=== PATIENT | male | born 1960 | race African-American/Black ===

== ENCOUNTER 2022-06-28 19:59 | Emergency (ER) | payer OTHER ==
[~2022-06-28] VITALS: Ht 165.1 cm; Wt 64.0 kg
[2022-06-28] MEDS ORDERED: ASPIRIN 81MG TABLET PO ONE (23:00)
[2022-06-28] MEDS ORDERED: NITROGLYCERIN 0.4MG TABLET SL SL PRN (23:00)
[2022-06-28 23:24] LABS: BASOPHILS % 0.2 % (0.0-2.0); EOSINOPHILS % 1.3 % (0.0-5.0); HEMATOCRIT. 39.4 % (42.0-52.0); HEMOGLOBIN. 13.4 g/dL (14.0-18.0); LYMPHOCYTES % 43.3 % (20.0-50.0); MEAN CORPUSCULAR VOLUME 90.9 fL (80.0-94.0); MEAN PLATELET VOLUME 8.3 fl (7.4-10.4); MONOCYTES % 11.8 % (2.0-8.0); NEUTROPHILS % 43.4 % (40.0-76.0); PLATELET 248 x1000/uL (130-400); RED BLOOD CELL COUNT 4.33 mill/uL (4.7-6.1); RED CELL DISTRIBUTION WIDTH 13.3 % (11.6-14.6)
[2022-06-28 23:28] LABS: CHLORIDE 107 mEq/L (98-107)
[2022-06-28 23:40] LABS: ETHANOL BLOOD < 10 mg/dL
[2022-06-29 03:00] VITALS: BP 128/66
== END 2022-06-29 03:10 ==
LOC: ER 19:59
DX: R07.89 Other chest pain (principal); I10 Essential (primary) hypertension; R94.31 Abnormal electrocardiogram [ECG] [EKG]; Z95.1 Presence of aortocoronary bypass graft; Z86.73 Personal history of transient ischemic attack (TIA), and cerebral infarction without residual deficits; Z65.3 Problems related to other legal circumstances
CPT/HCPCS: 36415; 71045; 80053; 80320; 83880; 84484; 85025; 93005; 99285; Z7610; G0480

== ENCOUNTER 2022-09-06 02:13 | Emergency (ER) | payer MEDICAID, OTHER ==
[~2022-09-06] VITALS: Ht 175.3 cm; Wt 80.0 kg
[2022-09-06 03:27] LABS: HEMATOCRIT. 49.2 % (42.0-52.0); MEAN CORPUSCULAR HEMOGLOBIN 31.2 pg (28.0-32.0); MEAN CORPUSCULAR VOLUME 90.4 fL (80.0-94.0); RED BLOOD CELL COUNT 5.44 mill/uL (4.7-6.1); RED CELL DISTRIBUTION WIDTH 13.7 % (11.6-14.6)
[2022-09-06 03:35] LABS: CHLORIDE 106 mEq/L (98-107)
[2022-09-06 03:45] LABS: ETHANOL BLOOD < 10 mg/dL
[2022-09-06] MEDS ORDERED: SODIUM CHLORIDE 0.9% 1,000 ML IV NR (03:45)
[2022-09-06] MEDS ORDERED: ONDANSETRON HCL 4MG/2ML INJ IV ONE (03:45)
[2022-09-06] MEDS ORDERED: MORPHINE SULFATE 2 MG/ML CPJ (NOT FOR IM USE) IV ONE (04:00)
[2022-09-06] MEDS ORDERED: ONDANSETRON HCL 4MG/2ML INJ IV NR (04:15)
[2022-09-06] MEDS ORDERED: MAGNESIUM/ALUMINUM HYDROXIDE/SIMETHICONE 30ML UDC PO NR (04:15)
[2022-09-06] MEDS: PANTOPRAZOLE SODIUM 40 MG/VIAL IV NR ×3 (04:15→06:28)
[2022-09-06] MEDS ORDERED: IOHEXOL-350 100 ML BOTTLE ONE (06:20)
[2022-09-06 07:44] VITALS: BP 117/60
[2022-09-06] MEDS ORDERED: ONDANSETRON HCL 4MG/2ML INJ IV PRN (09:30)
[2022-09-06] MEDS ORDERED: ACETAMINOPHEN 325MG TABLET PO PRN (09:30)
== END 2022-09-06 10:25 | disposition left against medical advice (07) ==
LOC: ER 02:30 → EDBEDREQSVC 05:55 → EDBEDREQ 05:55 → EDBEDREQTM 05:55 → ER 10:25 → CANBEDREQ 11:20
DX: R55 Syncope and collapse (principal); R07.89 Other chest pain; I50.9 Heart failure, unspecified; R11.2 Nausea with vomiting, unspecified; R00.1 Bradycardia, unspecified; I11.0 Hypertensive heart disease with heart failure; I25.10 Atherosclerotic heart disease of native coronary artery without angina pectoris; Z86.73 Personal history of transient ischemic attack (TIA), and cerebral infarction without residual deficits; Z20.822 Contact with and (suspected) exposure to COVID-19
CPT/HCPCS: 36415; 70450; 71045; 71275; 72125; 74174; 80053; 80320; 83605; 83690; 83880; 84484; 85025; 87426; 93005; 96374; 96375; 99285; C9113; C9803; J2270; J2405; Q9967; G0480

== ENCOUNTER 2025-03-13 18:20 | Inpatient (IN) | payer MEDICARE, MEDICAID ==
[~2025-03-13] VITALS: Ht 167.6 cm; Wt 62.2 kg
[~2025-03-13 18:20] MED LIST: ASPI-1497 MT; ATOR40TA70 MT; CHOL-36 PO; FOLI-43 MT; LEVE1000 MT; OMEP20CA14 MT; THIA100T72 MT
[2025-03-13 18:40] VITALS: O2SAT 100
[2025-03-13 19:34] LABS: BASOPHILS % 1.8 % (0.0-2.0); EOSINOPHILS % 1.0 % (0.0-5.0); HEMATOCRIT. 36.0 % (42.0-52.0); HEMOGLOBIN. 12.2 g/dL (14.0-18.0); LYMPHOCYTES % 42.3 % (20.0-50.0); MEAN PLATELET VOLUME 9.3 fl (7.4-10.4); MONOCYTES % 8.4 % (2.0-8.0); NEUTROPHILS % 46.5 % (40.0-76.0); PLATELET 170 x1000/uL (130-400); RED BLOOD CELL COUNT 4.00 mill/uL (4.7-6.1); RED CELL DISTRIBUTION WIDTH 13.1 % (11.6-14.6)
[2025-03-13 19:45] LABS: CREATININE 1.1 mg/dL (0.6-1.3); TROPONIN I HIGH SENSITIVITY 16 ng/L (3.0-53); UREA NITROGEN BLOOD 11 mg/dL (9-23)
[2025-03-13 19:46] LABS: ETHANOL BLOOD < 10 mg/dL (<10)
[2025-03-13] MEDS: SODIUM CHLORIDE 0.9% 1,000 ML IV ONE (21:13)
[2025-03-13] MEDS: LEVETIRACETAM 500MG PREMIX 100 ML IV ONE (21:14)
[2025-03-13] MEDS: LORAZEPAM 2MG/ML UD SYRINGE IV SCH (21:17)
[2025-03-14] MEDS ORDERED: ACETAMINOPHEN 325MG TABLET PO PRN ×2 (00:15)
[2025-03-14] MEDS ORDERED: GUAIFENESIN 200MG/10ML SUGAR FREE UDC PO PRN (00:15)
[2025-03-14] MEDS ORDERED: CLONIDINE 0.1MG TABLET PO PRN (00:15)
[2025-03-14] MEDS ORDERED: DOCUSATE SODIUM 100MG CAPSULE PO PRN (00:15)
[2025-03-14] MEDS ORDERED: ONDANSETRON HCL 4MG/2ML INJ IV PRN (00:15)
[2025-03-14] MEDS ORDERED: IPRATROPIUM/ALBUTEROL 0.5-3(2.5)MG/3ML NEB HHN PRN (00:15)
[2025-03-14 01:00] VITALS: BP 150/68; PULSE 51; RESP 18; TEMP 36.0844; TEMP 36.1; O2SAT 98
[2025-03-14] MEDS: DEXT 5%/0.9% NACL 1,000 ML IV SCH (01:52)
[2025-03-14 04:00] VITALS: BP 146/64; PULSE 69; RESP 16; TEMP 36.1; O2SAT 100
[2025-03-14] MEDS: PANTOPRAZOLE 40MG DR TABLET PO SCH (06:44)
[2025-03-14 08:00] VITALS: BP 145/67; PULSE 49; RESP 15; TEMP 36.7; O2SAT 18; O2SAT 95
[2025-03-14] MEDS: LEVETIRACETAM 1000MG PREMIX 100 ML IV SCH (08:30)
[2025-03-14] MEDS: ENOXAPARIN 40MG/0.4ML SYR SUBCUT SCH (09:00)
[2025-03-14] MEDS: ASPIRIN 81MG EC TABLET PO SCH (10:20)
[2025-03-14] MEDS: LEVETIRACETAM 500MG TABLET PO SCH (10:20)
[2025-03-14] MEDS: FOLIC ACID 1MG TABLET PO SCH (10:20)
[2025-03-14] MEDS: ATORVASTATIN CALCIUM 40MG TABLET PO SCH (10:21)
[2025-03-14] MEDS: THIAMINE HCL 100MG TABLET PO SCH (10:21)
[2025-03-14] MEDS: CHOLECALCIFEROL (D3) 1000 UNIT TABLET PO SCH (10:21)
[2025-03-14 12:00] VITALS: BP 131/64; PULSE 53; RESP 18; TEMP 36.7; O2SAT 93
[2025-03-14 16:00] VITALS: BP 124/63; PULSE 42; RESP 18; TEMP 36.3; O2SAT 100
[2025-03-14 20:00] VITALS: BP 131/62; PULSE 44; RESP 17; TEMP 36.7; O2SAT 100
[2025-03-14] MEDS ORDERED: LEVETIRACETAM 500MG/5ML CUP PO ONE (21:00)
[2025-03-14] MEDS: LEVETIRACETAM 500MG/5ML CUP PO SCH (21:45)
[2025-03-14 21:49] LABS: BASOPHILS % 0.2 % (0.0-2.0); EOSINOPHILS % 2.0 % (0.0-5.0); HEMATOCRIT. 34.4 % (42.0-52.0); HEMOGLOBIN. 11.5 g/dL (14.0-18.0); LYMPHOCYTES % 56.6 % (20.0-50.0); MEAN PLATELET VOLUME 9.3 fl (7.4-10.4); MONOCYTES % 9.8 % (2.0-8.0); NEUTROPHILS % 31.4 % (40.0-76.0); PLATELET 161 x1000/uL (130-400); RED BLOOD CELL COUNT 3.82 mill/uL (4.7-6.1); RED CELL DISTRIBUTION WIDTH 13.0 % (11.6-14.6)
[2025-03-15] VITALS: BP 123/54; PULSE 53; RESP 17; TEMP 36.9; O2SAT 99
[2025-03-15 04:00] VITALS: BP 112/53; PULSE 45; RESP 17; TEMP 36.9; O2SAT 97
[2025-03-15 07:26] LABS: CREATININE 0.9 mg/dL (0.6-1.3); UREA NITROGEN BLOOD 16 mg/dL (9-23)
[2025-03-15] MEDS ORDERED: OMEP20CA14 MT (07:42)
[2025-03-15] MEDS ORDERED: LEVE1000 MT (07:42)
[2025-03-15] MEDS ORDERED: ASPI-1497 MT (07:42)
[2025-03-15] MEDS ORDERED: ATOR40TA70 MT (07:42)
[2025-03-15] MEDS ORDERED: THIA100T72 MT (07:42)
[2025-03-15] MEDS ORDERED: CLOP-31 PO (07:42)
[2025-03-15] MEDS ORDERED: FOLI-43 MT (07:42)
[2025-03-15 08:00] VITALS: BP 114/53; PULSE 60; RESP 18; TEMP 36.6; O2SAT 100
[2025-03-15] MEDS: CLOPIDOGREL 75MG TABLET PO SCH (09:18)
== END 2025-03-15 11:50 | disposition left against medical advice (07) | DRG 101 ==
LOC: ER 18:20 → 5WST 23:50 → EDBEDREQDT 03-14 00:06 → EDBEDREQTM 03-14 00:06 → EDBEDREQ 03-14 00:06 → ENRESERV 03-14 00:10
PROVIDERS: ADMIT Hospitalist; ATTEND Hospitalist
PROC: 4A00X4Z Measurement of Central Nervous Electrical Activity, External Approach (ICD-10-PCS; principal; 2025-03-15)
DX: G40.909 Epilepsy, unspecified, not intractable, without status epilepticus (principal); I50.22 Chronic systolic (congestive) heart failure; I69.351 Hemiplegia and hemiparesis following cerebral infarction affecting right dominant side; Z59.00 Homelessness unspecified; I11.0 Hypertensive heart disease with heart failure; Z53.29 Procedure and treatment not carried out because of patient's decision for other reasons; D64.9 Anemia, unspecified; E78.00 Pure hypercholesterolemia, unspecified; I25.10 Atherosclerotic heart disease of native coronary artery without angina pectoris; N40.0 Benign prostatic hyperplasia without lower urinary tract symptoms; Z91.148 Patient's other noncompliance with medication regimen for other reason; Z95.1 Presence of aortocoronary bypass graft
CPT/HCPCS: 36415; 80048; 80320; 82550; 82962; 83605; 84484; 85025; 93005; 95816; 97162; 97166; 99285; A4606; J1650; J1953; J2060; J7030; J7042; G0480

== ENCOUNTER 2025-04-17 14:24 | Emergency (ER) | payer MEDICARE, MEDICAID ==
[~2025-04-17] VITALS: Ht 172.7 cm; Wt 64.0 kg
[~2025-04-17 14:24] MED LIST changes: +CLOP-31 PO
[2025-04-17 14:26] VITALS: O2SAT 99
[2025-04-17] MEDS: LEVETIRACETAM 1000MG PREMIX 100 ML IV ONE (14:55)
[2025-04-17 14:56] VITALS: BP 144/71; PULSE 60; RESP 18; TEMP 36.9; O2SAT 97
[2025-04-17 15:02] LABS: BASOPHILS % 2.0 % (0.0-2.0); EOSINOPHILS % 1.1 % (0.0-5.0); HEMATOCRIT. 35.9 % (42.0-52.0); HEMOGLOBIN. 12.3 g/dL (14.0-18.0); LYMPHOCYTES % 36.9 % (20.0-50.0); MEAN PLATELET VOLUME 8.8 fl (7.4-10.4); MONOCYTES % 6.4 % (2.0-8.0); NEUTROPHILS % 53.6 % (40.0-76.0); PLATELET 174 x1000/uL (130-400); RED BLOOD CELL COUNT 4.05 mill/uL (4.7-6.1); RED CELL DISTRIBUTION WIDTH 12.9 % (11.6-14.6)
[2025-04-17 15:13] LABS: CREATININE 1.1 mg/dL (0.6-1.3)
[2025-04-17 15:14] LABS: ETHANOL BLOOD < 10 mg/dL (<10); UREA NITROGEN BLOOD 10 mg/dL (9-23)
[2025-04-17] MEDS ORDERED: MAGNESIUM/ALUMINUM HYDROXIDE/SIMETHICONE 30ML UDC PO PRN (17:30)
[2025-04-17] MEDS ORDERED: DOCUSATE SODIUM 100MG CAPSULE PO PRN (17:30)
[2025-04-17] MEDS ORDERED: GUAIFENESIN 200MG/10ML SUGAR FREE UDC PO PRN (17:30)
[2025-04-17] MEDS ORDERED: CLONIDINE 0.1MG TABLET PO PRN (17:30)
[2025-04-17] MEDS ORDERED: ACETAMINOPHEN 325MG TABLET PO PRN ×2 (17:30)
[2025-04-17] MEDS ORDERED: IPRATROPIUM/ALBUTEROL 0.5-3(2.5)MG/3ML NEB HHN PRN (17:30)
[2025-04-17] MEDS ORDERED: ONDANSETRON HCL 4MG/2ML INJ IV PRN (17:30)
[2025-04-17] MEDS ORDERED: LEVETIRACETAM 500MG/5ML CUP PO SCH (21:00)
== END 2025-04-17 18:11 | disposition left against medical advice (07) ==
LOC: ER 14:24 → EDBEDREQ 17:04 → EDBEDREQTM 17:04 → ENRESERV 17:49 → ER 18:11 → CMPBEDREQ 19:27
DX: G40.901 Epilepsy, unspecified, not intractable, with status epilepticus (principal); E78.00 Pure hypercholesterolemia, unspecified; F14.10 Cocaine abuse, uncomplicated; I10 Essential (primary) hypertension; Z53.29 Procedure and treatment not carried out because of patient's decision for other reasons; Z79.02 Long term (current) use of antithrombotics/antiplatelets; Z79.82 Long term (current) use of aspirin; Z79.899 Other long term (current) drug therapy; Z91.148 Patient's other noncompliance with medication regimen for other reason
CPT/HCPCS: 80048; 80320; 85025; 36415; 70450; 96365; 99285; J1953; G0480